=== PATIENT | male | born 1970 | race Caucasian/White ===

== ENCOUNTER 2024-10-02 09:02 | Day surgery (SDC) | payer BC, OTHER ==
[2024-10-02] MEDS ORDERED: Lactated Ringers 1,000 ML IV ONE (09:03)
[2024-10-02] MEDS ORDERED: Propofol 200 MG/20 ML SDV IV ONE (09:03)
[2024-10-02] MEDS ORDERED: Glycopyrrolate 0.2 MG/ML 5 ML MDV IV ONE (09:03)
[2024-10-02] MEDS ORDERED: Ketamine 500 mg/10 ML MDV IV ONE (09:03)
[2024-10-02] MEDS ORDERED: Lidocaine 2% 100 MG/5 ML Syringe IVPUSH ONE (09:03)
[2024-10-02] MEDS ORDERED: Midazolam 1 MG/ML 2 ML SDV IV ONE (09:03)
[2024-10-02] MEDS ORDERED: Sodium Chloride 0.9% 10 ML Syringe FLUSH PRN (09:15)
[2024-10-02] MEDS: Lactated Ringers 1,000 ML IV SCH (10:19)
[2024-10-02] MEDS: Simethicone Drops 40 MG/0.6 ML 30 ML Bottle ONE (11:26)
== END 2024-10-02 13:15 | disposition home or self-care (01) ==
LOC: FB.SDS 09:02
PROVIDERS: ATTEND Surgery
DX: Z12.11 Encounter for screening for malignant neoplasm of colon (principal); D12.6 Benign neoplasm of colon, unspecified; K57.30 Diverticulosis of large intestine without perforation or abscess without bleeding; E66.01 Morbid (severe) obesity due to excess calories; E78.2 Mixed hyperlipidemia; Z68.42 Body mass index [BMI] 45.0-49.9, adult
CPT/HCPCS: 00811; 45385; 88305; A9270; J1596; J2250; J2704; J3490; J7120

== ENCOUNTER 2025-09-22 07:24 | Day surgery (SDC) | payer BC, OTHER ==
[~2025-09-22 07:24] MED LIST: Sodium Chloride 0.9% 10 ML Syringe FLUSH PRN
[2025-09-22] MEDS ORDERED: Propofol 200 MG/20 ML SDV IV ONE (07:25)
[2025-09-22] MEDS ORDERED: Ketamine 500 mg/10 ML MDV IV ONE (07:25)
[2025-09-22] MEDS ORDERED: Glycopyrrolate 0.2 MG/ML 5 ML MDV IV ONE (07:25)
[2025-09-22] MEDS ORDERED: Midazolam 1 MG/ML 2 ML SDV IV ONE (07:25)
[2025-09-22] MEDS: Lactated Ringers 1,000 ML IV SCH (07:45)
== END 2025-09-22 10:53 | disposition home or self-care (01) ==
LOC: FB.SDS 07:24
PROVIDERS: ATTEND Surgery
DX: Z12.11 Encounter for screening for malignant neoplasm of colon (principal); K51.40 Inflammatory polyps of colon without complications; K57.30 Diverticulosis of large intestine without perforation or abscess without bleeding; G47.30 Sleep apnea, unspecified; E66.01 Morbid (severe) obesity due to excess calories; Z68.41 Body mass index [BMI] 40.0-44.9, adult; Z86.0101 Personal history of adenomatous and serrated colon polyps; Z79.899 Other long term (current) drug therapy
CPT/HCPCS: 00811; 45381; 45384; 88305; A9270; J1596; J2003; J2250; J2704; J3490; J7120